=== PATIENT | female | born 1970 | race Caucasian/White ===

== ENCOUNTER → 2016-12-10 | Outpatient (CLI) | payer OTHER ==
--- NOTE | 2016-12-10 16:13 | XR ---
EXAMINATION TYPE: XR ribs RT DATE OF EXAM: 12/10/2016 COMPARISON: Chest 03/16/2012 HISTORY: 46-year-old female right posterior rib pain after fall FINDINGS: A nodular density at the right base is unchanged from 2012. No displaced right rib fracture seen. Vis ualized right hemithorax is clear. IMPRESSION: No displaced right rib fracture.
--- NOTE | 2016-12-10 16:14 | XR ---
EXAMINATION TYPE: XR pelvis AP view DATE OF EXAM: 12/10/2016 COMPARISON: NONE HISTORY: 46-year-old female fall from picnic table, contusion and pain FINDINGS: There is some fixation hardware within the upper sacrum. SI joints and pubic symphysis appear intact as do the hips. There is mild degenerative spurring at the hips. No acute fracture, subluxation, or d islocation. IMPRESSION: No acute osseous abnormality seen.
--- NOTE | 2016-12-10 16:17 | XR ---
EXAMINATION TYPE: 3 views thoracic spine. 5 views lumbar spine. DATE OF EXAM: 12/10/2016 COMPARISON: NONE HISTORY: 46-year-old female fall from the table, contusion and pain FINDINGS: Thoracic spine: 12 rib-bearing thoracic vertebral bodies. All pedicles are visualized. Very slight S-shaped scoliosis of the thoracic and lumbar spine. Mild degenerative disc disease mid thoracic spine. Alignment is ma intained and vertebral body heights are preserved. Lumbar spine: Levoconvex scoliosis. There is anterior L5-S1 and interbody fusion. 5 lumbar type vertebral bodies. N o pars interarticularis defect seen. Facet arthropathy lower lumbar spine and mild degenerative disc disease within the lumbar spine. There is preserved alignment and vertebral body heights. IMPRESSION: 1. Thoracic spine: Gentle S-shaped scoliosis of the thoracolumbar spine. Mild degenerative disc disea se midthoracic spine. No vertebral compression collapse or malalignment. 2. Lumbar spine: Levoconvex scoliosis. Prior anterior and interbody fusion at L5-S1. Mild multilevel degenerative disc disease. Moderate facet arthropathy mid to lower lumbar spine. No vertebral teresa kavitha collapse or malalignment.
== END | disposition home or self-care (01) ==
LOC: RADXRMAIN 15:41
PROVIDERS: ATTEND Emergency Medicine
DX: M51.34 Other intervertebral disc degeneration, thoracic region (principal); M41.85 Other forms of scoliosis, thoracolumbar region; M43.27 Fusion of spine, lumbosacral region; S30.0XXA Contusion of lower back and pelvis, initial encounter
CPT/HCPCS: 72072; 72110; 72170

== ENCOUNTER → 2016-12-17 | Outpatient (CLI) | payer OTHER ==
--- NOTE | 2016-12-17 13:04 | XR ---
EXAMINATION TYPE: XR chest 2V DATE OF EXAM: 12/17/2016 COMPARISON: 03/16/2012 HISTORY: 46-year-old female contusion of thorax, cough TECHNIQUE: Frontal and lateral views FINDINGS: Heart is normal size. Aorta and pulmonary vasculature within normal limits. Ovoid density projecting at the right base over the right hemidiaphragm was present in 2011 suggesting a benign etiology. No c onsolidation or pleural effusion. Suture anchor at the left humeral head from prior rotator cuff tear . IMPRESSION: No acute cardiopulmonary process.
== END | disposition home or self-care (01) ==
LOC: RADXRMAIN 12:40
PROVIDERS: ATTEND Emergency Medicine
DX: S20.20XA Contusion of thorax, unspecified, initial encounter (principal); R05 Cough; Z92.3 Personal history of irradiation; Z85.3 Personal history of malignant neoplasm of breast
CPT/HCPCS: 71020

== ENCOUNTER → 2017-01-06 | Outpatient (CLI) | payer OTHER ==
--- NOTE | 2017-01-06 16:36 | MR ---
EXAMINATION TYPE: MR lumbar spine wo con DATE OF EXAM: 01/06/2017 COMPARISON: Lumbar spine x-ray December 20, 2016. HISTORY: Contusion of lower back and pelvis, RT side and RT leg pain TECHNIQUE: Multiplanar, multisequence imaging of the lumbar spine is performed without IV contrast. FINDINGS: Sagittal images of the lumbar spine show vertebral body heights to appear satisfactory. The re is levoconvex scoliotic curvature redemonstrated centered in the mid lumbar spine. There is loss o f normal lumbar lordosis. Multilevel disc desiccation with mild to moderate multilevel disc space rob rowing is seen. There is artifact from anterior fusion hardware and disc at L5-S1 level. The conus m edullaris is normal in position and signal ending at inferior T12 level. The bone marrow signal inte nsity is within normal limits. Mild multilevel anterior spurring is present. Axial images show the T12-L1 and L1-L2 levels to appear within normal limits. Axial images at L2-L3 levels show mild broad disc bulge mildly effacing anterior thecal sac. Bilatera l neural foramina are patent. Axial images at L3-L4 level show broad-based posterior disc protrusion mildly effacing anterior theca l sac on axial image 13, bilateral neural foramina are patent. Axial images at L4-L5 level show mild facet degenerative changes bilaterally, right greater than left . There is broad disc bulge with central disc protrusion. There is some effacement of the anterior an d right posterior lateral thecal sac. Bilateral neural foramina remain patent. Axial images at the L5-S1 level shows central disc protrusion but spinal canal is preserved. There is artifact from surgical hardware seen. Bilateral neural foramina are patent. No suspicious retroperitoneal findings are identified. IMPRESSION: Postsurgical changes lumbosacral junction. There is loss of normal lumbar curvature with degenerative changes in mid to lower lumbar spine as detailed above. No significant finding however i s seen to account for patient's right-sided radiculopathy type symptoms.
== END | disposition home or self-care (01) ==
LOC: RADMRIMAIN 15:29
PROVIDERS: ATTEND Emergency Medicine
DX: M43.8X6 Other specified deforming dorsopathies, lumbar region (principal); S30.0XXD Contusion of lower back and pelvis, subsequent encounter; S20.20XD Contusion of thorax, unspecified, subsequent encounter; R05 Cough
CPT/HCPCS: 72148

== ENCOUNTER 2019-03-15 18:05 | Emergency (ER) | payer OTHER ==
[2019-03-15 18:13] VITALS: RESP 18
[2019-03-15] MEDS ORDERED: ACETAMINOPHEN TAB 500 MG TAB PO STA (18:24)
--- NOTE | 2019-03-15 18:37 | ED ---
Fall HPI - General Chief Complaint: Fall Stated Complaint: Fall-[facility] Time Seen by Provider: 03/15/19 18:15 Source: patient Mode of arrival: ambulatory - History of Present Illness Initial Comments: 48-year-old female patient presents to the emergency department today for evaluation of left hip pain and left knee pain after experiencing a fall. Patient states that she was walking through a wet area at work when she slipped and fell landing on the left side. Patient denies hitting her head or losing consciousness. States she was able to ambulate afterwards however is having significant pain to the left hip while doing so. Patient is also experiencing of knee discomfort. Denies any pain radiation down the leg. Denies numbness or tingling to the lower extremities. Denies any loss of bowel or bladder control. Has not taken anything for pain. Last tetanus vaccine was 4 years ago. Patient denies any headache, neck pain, back pain, chest pain, shortness of breath, di zziness, weakness, abdominal pain, nausea, vomiting, or difficulties with bowel movements or urination. - Related Data Home Medications Medication Instructions Recorded Confirmed LORazepam [Ativan] 1 mg PO BID 02/11/17 02/11/17 Lisinopril [Zestril] 10 mg PO DAILY 02/11/17 02/11/17 Omeprazole [PriLOSEC] 40 mg PO BID 02/11/17 02/11/17 Previous Rx's Medication Instructions Recorded Atorvastatin [Lipitor] 20 mg PO HS #30 tablet 02/12/17 Nicotine 14Mg/24Hr Patch [Habitrol] 1 patch TRANSDERM DAILY #7 patch 02/12/17 amLODIPine [Norvasc] 10 mg PO DAILY #30 tab 02/12/17 Allergies Allergy/AdvReac Type Severity Reaction Status Date / Time meperidine [From Demerol] Allergy Unknown Verified 03/15/19 18:13 pseudoephedrine Allergy Rash/Hives Verified 03/15/19 18:13 [From Sudafed] Sulfa (Sulfonamide Allergy Rash/Hives Verified 03/15/19 18:13 Antibiotics) adhesive tape AdvReac Unknown Verified 03/15/19 18:13 aspirin AdvReac Rash/Hives Verified 03/15/19 18:13 prochlorperazine AdvReac Unknown Verified 03/15/19 18:13 [From Compazine] Review of Systems ROS Statement: Those systems with pertinent positive or pertinent negative responses have been documented in the HPI. ROS Other: All systems not noted in ROS Statement are negative. Past Medical History Past Medical History: Cancer, Chest Pain / Angina, Hypertension Additional Past Medical History / Comment(s): tongue, throat abd breast cancer History of Any Multi-Drug Resistant Organisms: None Reported Past Surgical History: Hysterectomy, Orthopedic Surgery Additional Past Surgical History / Comment(s): tumor removal, lumbar fusion Past Psychological History: Anxiety, Panic Disorder Smoking Status: Current every day smoker Past Alcohol Use History: None Reported Past Drug Use History: None Reported - Past Family History Father Additional Family Medical History / Comment(s): father of lung ca Mother Family Medical History: Hypertension Additional Family Medical History / Comment(s): pt's brother has HTN General Exam Limitations: no limitations General appearance: alert, in no apparent distress, other (This is a well- developed, well-nourished adult female patient in no acute distress. Vital sig ns upon presentation are temp 97.7 degrees Fahrenheit, pulse 70, respirations 18, blood pressure 146/86, pulse ox 98% on room air.) Eye exam: Present: normal appearance, PERRL, EOMI. Absent: scleral icterus, conjunctival injection, periorbital swelling ENT exam: Present: normal exam, normal oropharynx, mucous membranes moist Neck exam: Present: normal inspection, full ROM, other (Nontender, no step-off, no deformity to firm midline palpation of the posterior cervical spine. Full range of motion without pain or limitation.). Absent: tenderness, meningismus, lymphadenopathy Respiratory exam: Present: normal lung sounds bilaterally. Absent: respiratory distress, wheezes, rales, rhonchi, stridor Cardiovascular Exam: Present: regular rate, normal rhythm, normal heart sounds. Absent: systolic murmur, diastolic murmur, rubs, gallop, clicks GI/Abdominal exam: Present: soft, normal bowel sounds. Absent: distended, tenderness, guarding, rebound, rigid Extremities exam: Present: full ROM, normal capillary refill, other (Abrasion noted to the left knee. Tenderness over the left anterior knee. Left lateral hip tenderness. Skin is otherwise pink, warm, dry. Cap refills less than 3 seconds. Pedal pulse posttibial pulses are 2+ and equal bilaterally.). Absent: normal inspection, tenderness, pedal edema, joint swelling, calf tenderness Back exam: Present: normal inspection, other (Nontender, no step-off, no deformity to firm midline palpation of the thoracic and lumbar vertebrae. Full range of motion without pain or limitation.). Absent: vertebral tenderness Neurological exam: Present: alert, oriented X3, CN II-XII intact Psychiatric exam: Present: normal affect, normal mood Skin exam: Present: warm, dry, intact, normal color. Absent: rash Course Vital Signs 03/15/19 18:07 Temperature 97.7 F Pulse Rate 70 Respiratory 18 Rate Blood Pressure 146/86 O2 Sat by Pulse 98 Oximetry Medical Decision Making - Medical Decision Making 48-year-old female patient presents to the emergency department today for evaluation of left hip and knee pain after experiencing a slip and fall accident at work. Physical examination did reveal tenderness over the left lateral hip, abrasion to the left anterior knee. There is good neurovascular status to the left lower extremity. X-rays were obtained and were negative for any acute fractures or dislocations. Patient's symptoms and findings are consistent with contusion. She is instructed to rest, elevate the extremity. Take Tylenol Motrin for pain control. She is instructed to follow-up with employee health for further evaluation for any new, worsening, or concerning symptoms. She verbalizes understanding and agrees with this plan. - Radiology Data Radiology results: report reviewed, image reviewed 3 views of the left hip and pelvis are obtained. Report was reviewed in its entirety. Impression by Dr. Sabine Clifford shows no acute process. 3 views of the left knee are obtained. Report was reviewed in its entirety. Impression by Dr. Sabine Clifford shows no acute process. Disposition Clinical Impression: Contusion of left hip, Abrasion, left knee, initial encounter, Contusion of left knee Disposition: HOME SELF-CARE Condition: Good Instructions (If sedation given, give patient instructions): Contusion in Adults (ED), Abrasion (ED) Additional Instructions: Apply ice to the painful areas. Rest. Take Tylenol Motrin for pain control. Follow-up with the primary care physician for recheck in 1-2 days. Return to the emergency department immediately for any new, worsening, or concerning symptoms. Is patient prescribed a controlled substance at d/c from ED?: No Referrals: SouHarvey chatterjee DO [Primary Care Provider] - 1-2 days Time of Disposition: 19:48
[2019-03-15] MEDS: IBUPROFEN 600 MG TAB PO STA ×2 (18:41→18:46)
--- NOTE | 2019-03-15 19:40 | XR ---
PROCEDURE: XR Hip LT and AP Pelvis - 3V DATE AND TIME: 03/15/2019 6:57 PM CLINICAL INDICATION: PHH; left hip pain after fall TECHNIQUE: AP pelvis and coned AP and frog-leg lateral views of the left hip COMPARISON: 12/10/2016 FINDINGS: There is no fracture or malalignment. The soft tissues are unremarkable. IMPRESSION: NO ACUTE PROCESS.
--- NOTE | 2019-03-15 19:41 | XR ---
PROCEDURE: XR knee complete LT - 3V DATE AND TIME: 03/15/2019 6:57 PM CLINICAL INDICATION: PHH; pain after fall TECHNIQUE: Department protocol COMPARISON: None FINDINGS: There is no fracture or malalignment. The soft tissues are unremarkable. IMPRESSION: NO ACUTE PROCESS.
[2019-03-15 20:10] VITALS: BP 153/90; PULSE 63; TEMP 98.3
== END 2019-03-15 20:09 | disposition home or self-care (01) ==
LOC: EC 18:05
DX: S70.02XA Contusion of left hip, initial encounter (principal); S80.02XA Contusion of left knee, initial encounter; I10 Essential (primary) hypertension; F41.0 Panic disorder [episodic paroxysmal anxiety]; F17.200 Nicotine dependence, unspecified, uncomplicated; Z88.2 Allergy status to sulfonamides; Z88.5 Allergy status to narcotic agent; Z88.6 Allergy status to analgesic agent; Z88.8 Allergy status to other drugs, medicaments and biological substances; Z91.048 Other nonmedicinal substance allergy status; Z79.899 Other long term (current) drug therapy; Z85.3 Personal history of malignant neoplasm of breast; Z85.810 Personal history of malignant neoplasm of tongue; Z85.028 Personal history of other malignant neoplasm of stomach; Z85.819 Personal history of malignant neoplasm of unspecified site of lip, oral cavity, and pharynx; Z98.890 Other specified postprocedural states; W01.0XXA Fall on same level from slipping, tripping and stumbling without subsequent striking against object, initial encounter; Y93.01 Activity, walking, marching and hiking; Y92.69 Other specified industrial and construction area as the place of occurrence of the external cause; Y99.0 Civilian activity done for income or pay
CPT/HCPCS: 73502; 99283

== ENCOUNTER → 2019-03-17 | Outpatient (CLI) | payer OTHER ==
--- NOTE | 2019-03-17 10:42 | XR ---
EXAM TYPE: LUMBAR SPINE X RAY SERIES COMPARISON: NONE HISTORY: Pain TECHNIQUE: 4 views are submitted. FINDINGS: Alignment is anatomic. The pedicles are intact. The transverse processes are intact. There is slig ht curvature the spine postsurgical change involving the lumbosacral junction. Multilevel degenerativ e disc disease and facet arthropathy noted. No compression deformities noted. Incidental note made of Schmorl's nodes. IMPRESSION: 1. Postsurgical and degenerative change.
== END | disposition home or self-care (01) ==
LOC: RADXRMAIN 10:04
PROVIDERS: ATTEND Emergency Medicine
DX: M47.817 Spondylosis without myelopathy or radiculopathy, lumbosacral region (principal); Z98.890 Other specified postprocedural states
CPT/HCPCS: 72100

== ENCOUNTER → 2019-03-29 | Outpatient (CLI) | payer OTHER ==
--- NOTE | 2019-03-29 12:23 | XR ---
EXAMINATION TYPE: XR knee complete LT DATE OF EXAM: 03/29/2019 CLINICAL HISTORY: pain TECHNIQUE: Three views of the left knee are obtained. COMPARISON: None. FINDINGS: There is no acute fracture/dislocation. The tri-compartment joint spaces appear within no rmal limits. The overlying soft tissue appears unremarkable. IMPRESSION: There is no acute fracture or dislocation ICD 10 NO FRACTURE, INITIAL EVALUATION
== END | disposition home or self-care (01) ==
LOC: RADXRMAIN 12:01
PROVIDERS: ATTEND Emergency Medicine
DX: S80.02XA Contusion of left knee, initial encounter (principal)

== ENCOUNTER → 2023-12-04 | Outpatient (CLI) | payer OTHER ==
--- NOTE | 2023-12-04 12:19 | XR ---
EXAMINATION TYPE: XR Hip Complete RT DATE OF EXAM: 12/04/2023 CLINICAL HISTORY: pain TECHNIQUE: AP and frogleg views of the right hip are obtained. COMPARISON: None. FINDINGS: There is no acute fracture/dislocation evident. The joint space appears within normal li mits. The overlying soft tissue appears unremarkable. IMPRESSION: 1. There is no acute fracture or dislocation. ICD 10 NO FRACTURE, INITIAL EVALUATION
--- NOTE | 2023-12-04 12:20 | XR ---
EXAMINATION TYPE: XR femur RT DATE OF EXAM: 12/04/2023 CLINICAL HISTORY: pain TECHNIQUE: Two views of the right femur are obtained. COMPARISON: None. FINDINGS: There is no acute fracture or dislocation seen of the femur. The hip and knee joints appear within normal limits. The overlying soft tissue appears unremarkable. IMPRESSION: There is no acute fracture or dislocation seen of the femur. ICD 10 NO FRACTURE, INITIAL EVALUATION
== END | disposition home or self-care (01) ==
LOC: RADXRMAIN 11:08
PROVIDERS: ATTEND Family Medicine
DX: M25.551 Pain in right hip (principal); M79.651 Pain in right thigh; M54.50 Low back pain, unspecified; R74.8 Abnormal levels of other serum enzymes; Z85.3 Personal history of malignant neoplasm of breast
CPT/HCPCS: 73502

== ENCOUNTER 2024-04-19 09:43 | Emergency (ER) | payer OTHER ==
[2024-04-19 09:46] VITALS: TEMP 97.1
--- NOTE | 2024-04-19 10:20 | ED ---
Headache HPI - General Chief Complaint: Headache Stated Complaint: headache/L eye blurry vision Time Seen by Provider: 04/19/24 10:01 Source: patient, RN notes reviewed Mode of arrival: ambulatory Limitations: no limitations - History of Present Illness Initial Comments: This is a 54-year-old female presenting to emergency room chief complaint of intermittent left-sided headache over the past approximately 10 days. States that over the past day she has been having difficulty sleeping. Endorses photophobia, left eye blurry vision, and nausea. Denies chest pain, shortness of breath difficulty breathing. States over the past 2 days she has had parviz vation in her blood pressure as well however takes multiple medications for this at home. - Related Data Home Medications Medication Instructions Recorded Confirmed Atorvastatin [Lipitor] 80 mg PO HS 04/19/24 04/19/24 Cyclobenzaprine [Flexeril] 10 mg PO BID 04/19/24 04/19/24 Isosorbide Dinitrate [Isordil] 20 mg PO DAILY 04/19/24 04/19/24 Losartan [Cozaar] 50 mg PO BID 04/19/24 04/19/24 Metoprolol Tartrate [Lopressor] 50 mg PO BID 04/19/24 04/19/24 Pantoprazole Sodium [Protonix] 40 mg PO DAILY 04/19/24 04/19/24 Sertraline HCl [Zoloft] 50 mg PO HS 04/19/24 04/19/24 hydroCHLOROthiazide [Hydrodiuril] 12.5 mg PO DAILY 04/19/24 04/19/24 Previous Rx's Medication Instructions Recorded SUMAtriptan succinate [Imitrex] 50 mg PO ONCE PRN #10 tablet 04/19/24 Allergies Allergy/AdvReac Type Severity Reaction Status Date / Time adhesive tape Allergy Rips Verified 04/19/24 12:46 layers of skin, rash aspirin Allergy Rash/Hives Verified 04/19/24 12:46 meperidine [From Demerol] Allergy Unknown Verified 04/19/24 12:46 pseudoephedrine Allergy Rash/Hives Verified 04/19/24 12:46 [From Sudafed] Sulfa (Sulfonamide Allergy Rash/Hives Verified 04/19/24 12:46 Antibiotics) prochlorperazine AdvReac aggresion, Verified 12/17/24 12:46 [From Compazine] agitation, high heart rate Review of Systems ROS Statement: Those systems with pertinent positive or pertinent negative responses have been documented in the HPI. ROS Other: All systems not noted in ROS Statement are negative. Past Medical History Past Medical History: Cancer, Chest Pain / Angina, Hypertension Additional Past Medical History / Comment(s): tongue, throat abd breast cancer History of Any Multi-Drug Resistant Organisms: None Reported Past Surgical History: Hysterectomy, Orthopedic Surgery Additional Past Surgical History / Comment(s): tumor removal, lumbar fusion Past Psychological History: Anxiety, Panic Disorder Smoking Status: Current every day smoker Past Alcohol Use History: Occasional Past Drug Use History: None Reported - Past Family History Father Additional Family Medical History / Comment(s): father of lung ca Mother Family Medical History: Hypertension Additional Family Medical History / Comment(s): pt's brother has HTN General Exam - General Exam Comments Initial Comments: Visual Physical Exam Vital signs reviewed General: Well-appearing, nontoxic, no acute distress. Head: Normocephalic, atraumatic Eyes: PERRLA, EOMI ENT: Airway patent Chest: Nonlabored breathing Skin: No visual rash, normal skin tone Neuro: Alert and oriented 3 Musculoskeletal: No gross abnormalities Limitations: no limitations General appearance: alert, in no apparent distress Eye exam: Present: normal appearance, PERRL, EOMI. Absent: scleral icterus, conjunctival injection, periorbital swelling Neck exam: Present: normal inspection. Absent: tenderness, meningismus, lymphadenopathy Respiratory exam: Present: normal lung sounds bilaterally. Absent: respiratory distress, wheezes, rales, rhonchi, stridor Cardiovascular Exam: Present: regular rate, normal rhythm, normal heart sounds. Absent: systolic murmur, diastolic murmur, rubs, gallop, clicks Extremities exam: Present: normal inspection, full ROM, normal capillary refill. Absent: tenderness, pedal edema, joint swelling, calf tenderness Neurological exam: Present: alert, oriented X3, CN II-XII intact Course Vital Signs 04/19/24 04/19/24 09:44 12:21 Temperature 97.1 F L Pulse Rate 89 62 Respiratory 20 18 Rate Blood Pressure 180/89 156/85 O2 Sat by Pulse 98 Oximetry Medical Decision Making - Medical Decision Making Was pt. sent in by a medical professional or institution (Dr., PA, EVIDENCE TECHNICIAN, urgent care, hospital, or group home...) When possible be specific @ -No Did you speak to anyone other than the patient for history (EMS, parent, family, police, friend...)? What history was obtained from this source @ -No Did you review nursing and triage notes (agree or disagree)? Why? @ -I reviewed and agree with nursing and triage notes Were old charts reviewed (outside hosp., previous admission, EMS record, old EKG, old radiological studies, urgent care reports/EKG's, group home records)? Report findings @ -No old charts were reviewed Differential Diagnosis (chest pain, altered mental status, abdominal pain women, abdominal pain men, vaginal bleeding, weakness, fever, dyspnea, syncope, headache, dizziness, GI bleed, back pain, seizure, CVA, palpatations, mental he alth, musculoskeletal)? @ -Differential Headache: Migraine, tension, cluster, carbon monoxide, central venous thrombosis, pension karma temporal arteritis, acute closure glaucoma, intercranial hemorrhage, mastoiditis, sinusitis, head injury, this is not meant to be an all-inclusive list. EKG interpreted by me (3pts min.). @ -Completed at 1055 sinus rhythm with a ventricular to 67, VT interval 150, QRS 106, QTc 409. There is noted T wave inversions in leads V2, V3, lead III. X-rays interpreted by me (1pt min.). @ -None done CT interpreted by me (1pt min.). @ -CT of the brain without contrast no acute cranial process U/S interpreted by me (1pt. min.). @ -None done What testing was considered but not performed or refused? (CT, X-rays, U/S, labs)? Why? @ -None What meds were considered but not given or refused? Why? @ -None Did you discuss the management of the patient with other professionals (professionals i.e. , PA, EVIDENCE TECHNICIAN, lab, RT, psych nurse, social services counselor, credit relationship manager, teacher, chief supply chain officer, manager of case management)? Give summary @ -No Was smoking cessation discussed for >3mins.? @ -No Was critical care preformed (if so, how long)? @ -No Were there social determinants of health that impacted care today? How? (Homelessness, low income, unemployed, alcoholism, drug addiction, transportation, low edu. Level, literacy, decrease access to med. care, senior living, rehab)? @ -No Was there de-escalation of care discussed even if they declined (Discuss DNR or withdrawal of care, Hospice)? DNR status @ -No What co-morbidities impacted this encounter? (DM, HTN, Smoking, COPD, CAD, Cancer, CVA, ARF, Chemo, Hep., AIDS, mental health diagnosis, sleep apnea, morbid obesity)? @ -None Was patient admitted / discharged? Hospital course, mention meds given and route, prescriptions, significant lab abnormalities, going to OR and other pertinent info. @ -Discharge. 54-year-old presenting with migraine headache. Patient is hypertensive on arrival with a blood pressure 180/89. With concern for persistent headache over the past week and hypertension patient will undergo CT imaging of the brain without contrast and laboratory studies. Additionally, she is provided with a migraine cocktail. She is agree with this plan. Laboratory studies are unremarkable. EKG sinus rhythm. CT no acute process. Patient is provided with fluids, Benadryl, Tylenol, Decadron. On reevaluation, patient is that she is still experiencing a headache. At this time patient is provided with Imitrex subcu injection. On reevaluation, patient states that migraine has completely resolved and is feeling much better than arrival to emergency department. She is sent a prescription for Imitrex and instructed to follow-up with her primary care provider in the next 1 to 2 days outpatient for further evaluation. Discussed with Dr. Begum Undiagnosed new problem with uncertain prognosis? @ -No Drug Therapy requiring intensive monitoring for toxicity (Heparin, Nitro, Insulin, Cardizem)? @ -No Were any procedures done? @ -No Diagnosis/symptom? @ -migraine headache Acute, or Chronic, or Acute on Chronic? @ -Acute Uncomplicated (without systemic symptoms) or Complicated (systemic symptoms)? @ -uncomplicated Side effects of treatment? @ -No Exacerbation, Progression, or Severe Exacerbation? @ -No Poses a threat to life or bodily function? How? (Chest pain, [place], [place], pneumonia, PE, COPD, DKA, ARF, appy, cholecystitis, CVA, Diverticulitis, Homicidal, Suicidal, threat to staff... and all critical care pts) @ -No - Lab Data Result diagrams: 04/19/24 11:13 04/19/24 11:13 Lab Results 04/19/24 04/19/24 Range/Units 11:13 11:13 WBC 7.3 (3.8-10.6) k/uL RBC 4.26 (3.80-5.40) m/uL Hgb 13.1 (11.4-16.0) gm/dL Hct 38.8 (34.0-46.0) % MCV 91.0 (80.0-100.0) fL MCH 30.7 (25.0-35.0) pg MCHC 33.7 (31.0-37.0) g/dL RDW 13.4 (11.5-15.5) % Plt Count 328 (150-450) k/uL MPV 7.1 Neutrophils % 65 % Lymphocytes % 26 % Monocytes % 5 % Eosinophils % 2 % Basophils % 1 % Neutrophils # 4.7 (1.3-7.7) k/uL Lymphocytes # 1.9 (1.0-4.8) k/uL Monocytes # 0.4 (0-1.0) k/uL Eosinophils # 0.2 (0-0.7) k/uL Basophils # 0.1 (0-0.2) k/uL Sodium 137 (137-145) mmol/L Potassium 3.7 (3.5-5.1) mmol/L Chloride 103 (98-107) mmol/L Carbon Dioxide 28 (22-30) mmol/L Anion Gap 6 mmol/L BUN 18 H (7-17) mg/dL Creatinine 0.90 (0.52-1.04) mg/dL Est GFR (CKD-EPI)AfAm 84 (>60 ml/min/1.73 sqM) Est GFR (CKD-EPI)NonAf 73 (>60 ml/min/1.73 sqM) Glucose 98 (74-99) mg/dL Calcium 9.8 (8.4-10.2) mg/dL Magnesium 2.0 (1.6-2.3) mg/dL Total Bilirubin 0.9 (0.2-1.3) mg/dL AST 28 (14-36) U/L ALT 25 (4-34) U/L Alkaline Phosphatase 117 (38-126) U/L Total Protein 7.8 (6.3-8.2) g/dL Albumin 4.5 (3.5-5.0) g/dL Disposition Clinical Impression: Migraine headache Disposition: HOME SELF-CARE Condition: Good Instructions (If sedation given, give patient instructions): Acute Headache (ED) Additional Instructions: Please return to the Emergency Department if symptoms worsen or any other concerns. Recommend they follow-up with your primary care provider in the next 1 to 2 days for further evaluation. Take prescribed medication as needed for headache. Recommend you continue to take Tylenol, as well, as needed. Prescriptions: SUMAtriptan succinate [Imitrex] 50 mg PO ONCE PRN #10 tablet PRN Reason: Migraine Headache Is patient prescribed a controlled substance at d/c from ED?: No Referrals: Prince Ott MD [Primary Care Provider] - 1-2 days Time of Disposition: 14:42
--- NOTE | 2024-04-19 10:34 | CT ---
EXAMINATION TYPE: CT brain wo con CT DLP: 1197.7 mGycm, Automated exposure control for dose reduction was used. DATE OF EXAM: 04/19/2024 10:30 AM COMPARISON: MRI brain and IAC 04/07/2011 CLINICAL INDICATION:Female, 54 years old with history of persistent BLANCA, HEADACHE TECHNIQUE: Brain: Multiple axial CT images of the brain were obtained without IV contrast. . Coronal and sagitta l reformats reviewed. FINDINGS: Brain: Extra-axial spaces: No abnormal extra-axial fluid collections. Ventricular system: Within normal limits Cerebral parenchyma: No acute intraparenchymal hemorrhage or mass effect. The patel-white junction is well differentiated. Cerebellum: Unremarkable. Mass effect: No evidence of midline shift. Intracranial vasculature: Atherosclerotic calcifications of the intracranial vessels. Soft tissues: Normal. Calvarium/osseous structures: No depressed skull fracture. Paranasal sinuses and mastoid air cells: Clear Visualized orbits: Orbital contents are intact. IMPRESSION: No acute intracranial process. [facility], , 04/19/2024 10:32 AM
[2024-04-19 11:17] LABS: Basophils # (A) 0.1 k/uL (0-0.2); Basophils % (A) 1 %; Eosinophils # (A) 0.2 k/uL (0-0.7); Eosinophils % (A) 2 %; HCT 38.8 % (34.0-46.0); HGB 13.1 gm/dL (11.4-16.0); Lymphocytes # (A) 1.9 k/uL (1.0-4.8); Lymphocytes % (A) 26 %; MCH 30.7 pg (25.0-35.0); MCHC 33.7 g/dL (31.0-37.0); Mean Platelet Volume 7.1; Monocytes # (A) 0.4 k/uL (0-1.0); Monocytes % (A) 5 %; Neutrophils # (A) 4.7 k/uL (1.3-7.7); Neutrophils % (A) 65 %; Platelet Count 328 k/uL (150-450); RBC 4.26 m/uL (3.80-5.40); RDW 13.4 % (11.5-15.5); WBC 7.3 k/uL (3.8-10.6)
[2024-04-19] MEDS: ACETAMINOPHEN TAB 500 MG TAB PO STA (11:25)
[2024-04-19] MEDS: diphenhydrAMINE 50 MG/ML 1 ML VIAL IVP STA (11:25)
[2024-04-19] MEDS: DEXAMETHASONE SOD PHOSPHATE 10 MG/ML 1 ML VIAL IVP STA (11:26)
[2024-04-19] MEDS: SODIUM CHLORIDE 0.9% 1,000 ML IV STA (11:26)
[2024-04-19 11:49] LABS: ALT 25 U/L (4-34); AST 28 U/L (14-36); African American GFR (CKD) 84 (>60 ml/min/1.73 sqM); Albumin 4.5 g/dL (3.5-5.0); Alkaline Phosphatase 117 U/L (38-126); Anion Gap 6 mmol/L; Blood Urea Nitrogen 18 mg/dL (7-17); Calcium 9.8 mg/dL (8.4-10.2); Carbon Dioxide 28 mmol/L (22-30); Chloride 103 mmol/L (98-107); Glucose 98 mg/dL (74-99); Non-African American GFR(CKD) 73 (>60 ml/min/1.73 sqM); Potassium 3.7 mmol/L (3.5-5.1); Sodium 137 mmol/L (137-145); Total Bilirubin 0.9 mg/dL (0.2-1.3); Total Protein 7.8 g/dL (6.3-8.2)
[2024-04-19 12:22] VITALS: BP 156/85; PULSE 62; RESP 18
[2024-04-19] MEDS: SUMAtriptan succinate 6 MG/0.5 ML VIAL SQ STA (14:25)
== END 2024-04-19 15:05 | disposition home or self-care (01) ==
LOC: EC 09:43
DX: G43.909 Migraine, unspecified, not intractable, without status migrainosus (principal); F17.200 Nicotine dependence, unspecified, uncomplicated; Z88.1 Allergy status to other antibiotic agents; Z88.2 Allergy status to sulfonamides; Z88.5 Allergy status to narcotic agent; Z88.8 Allergy status to other drugs, medicaments and biological substances
CPT/HCPCS: 36415; 93005; 80053; 83735; 85025; 70450; 99284; 96374; 96375; 96372; 96361; J3030; J1200; J1100

== ENCOUNTER → 2024-06-27 | Outpatient (CLI) | payer OTHER ==
--- NOTE | 2024-06-27 08:42 | MR ---
EXAMINATION TYPE: MR knee LT wo con DATE OF EXAM: 06/27/2024 6:30 AM COMPARISON: Radiograph 03/15/2019. CLINICAL INDICATION: Female, 54 years old with history of M25.562 pain L knee; PHH, Left knee pain, f ell on ice 3 wks ago. TECHNIQUE: Multi planar, multi sequence imaging was performed of the knee including: Triplane proton density fat-saturated images and T1-weighted imaging. No Gadolinium was given. IV Contrast: mL (none if empty) FINDINGS: Medial meniscus: Intact Medial femorotibial cartilage: Grade-I chondromalacia. Medial collateral ligament: Intact Lateral meniscus: Intact Lateral femorotibial cartilage: Grade-I chondromalacia. 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 Extensor mechanism: Intact. Joint/bursal fluid: None. Muscles/tendons: The patellar tendon, quadriceps tendon, IT band, pes anserinus tendons, semimembrano geoff tendon, popliteus tendon, and biceps femoris tendon are all within normal limits. Bone marrow: Normal. Anterior cruciate ligament: Intact. Posterior cruciate ligament: Intact. Soft tissues: Unremarkable. IMPRESSION: 1. No definitive evidence to suggest meniscal tear nor ligamentous injury. 2. 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 [facility], Workstation: 3, 06/27/2024 8:40 AM
== END | disposition home or self-care (01) ==
LOC: RADMRIMAIN 05:53
PROVIDERS: ATTEND Orthopaedic Surgery
DX: S83.204A Other tear of unspecified meniscus, current injury, left knee, initial encounter (principal); M17.12 Unilateral primary osteoarthritis, left knee; M94.262 Chondromalacia, left knee; F17.210 Nicotine dependence, cigarettes, uncomplicated; W00.0XXA Fall on same level due to ice and snow, initial encounter